=== PATIENT | male | born 1985 ===

== ENCOUNTER 2022-05-25 02:44 | Emergency (ER) | payer SELFPAY ==
[2022-05-25] MEDS ORDERED: Labetalol 20 MG/4 ML Syringe IVPUSH ONE (02:54)
[2022-05-25] MEDS ORDERED: Sodium Chloride 0.9% 10 ML Syringe FLUSH PRN (02:54)
[2022-05-25] MEDS ORDERED: Tranexamic Acid 1,000 MG in Sodium Chloride 0.9% 50 ML IV ONE (03:00)
[2022-05-25] MEDS ORDERED: Tranexamic Acid 1,000 MG/10 ML Vial TOP ONE (03:01)
== END 2022-05-25 04:45 | disposition home or self-care (01) ==
LOC: FB.ED 02:44
DX: R04.0 Epistaxis (principal); I16.9 Hypertensive crisis, unspecified; I10 Essential (primary) hypertension; E11.9 Type 2 diabetes mellitus without complications; F17.210 Nicotine dependence, cigarettes, uncomplicated; E66.9 Obesity, unspecified; Z68.39 Body mass index [BMI] 39.0-39.9, adult
CPT/HCPCS: 96365; 96375; 99283; J3490